=== PATIENT | male | born 1975 | race Caucasian/White ===

== ENCOUNTER → 2023-06-22 06:33 | Day surgery (SDC) | payer OTHER, SELFPAY | LOC: GI 06:33 | PROVIDERS: ATTENDING PHYSICIAN Internal Medicine Gastroenterology; FAMILY PHYSICIAN Physician Assistant Medical | DX: Z12.11 Encounter for screening for malignant neoplasm of colon (principal); K64.8 Other hemorrhoids; D12.4 Benign neoplasm of descending colon | CPT/HCPCS: 45385; 88305 ==